=== PATIENT | male | born 1955 | race Caucasian/White ===

== ENCOUNTER 2016-09-11 09:48 | Day surgery (SDC) | payer OTHER ==
--- NOTE | ~2016-09-11 | EGD ---
EGD REPORT [facility] [address] [place] [address] NAME: DRE ANDRADE : 55 STATUS : REG [facility]#: [id number] AGE: 60 ADM/REG DATE : 09/11/16 MR#: [id number] REPORT SERV DATE: 09/11/16 DICTATED BY: BRANDEN CADET DATE: 09/11/16 REPORT STATUS : Draft TRANSCRIBED BY: [employer] DATE: 09/11/16 [facility] Patient Name: Dre Andrade Date of : 1955 Attending MD: BRANDEN CADET MD Procedure Date No Time: 09/11/2016 Procedure: Colonoscopy Indications: Colon cancer screening in patient at increased risk: Colorectal cancer in brother Referring MD: Delvin Rivas Medicines: Monitored Anesthesia Care Complications: No immediate complications. Procedure: Pre-Anesthesia Assessment: - ASA Grade Assessment: III - A patient with severe systemic disease. After I obtained informed consent, the scope was passed under direct vision. Throughout the procedure, the patient's blood pressure, pulse, and oxygen saturations were monitored continuously. The CF [id number] was introduced through the anus and advanced to the cecum, identified by appendiceal orifice and ileocecal valve. The colonoscopy was performed without difficulty. The patient tolerated the procedure well. The quality of the bowel preparation was good. Findings: The digital rectal exam was normal. Pertinent negatives include no palpable rectal lesions. The terminal ileum appeared normal. Hemorrhoids were found during retroflexion and were moderate. Multiple diverticula were found in the sigmoid colon. A sessile polyp was found in the descending colon. The polyp was 10 mm in size. The polyp was removed with a cold snare. Resection and retrieval were complete. A sessile polyp was found in the descending colon. The polyp was 6 mm in size. The polyp was removed with a jumbo cold forceps. Resection and retrieval were complete. A sessile polyp was found in the distal ascending colon. The polyp was 10 mm in size. The polyp was removed with a cold snare. Resection and retrieval were complete. A sessile polyp was found in the distal ascending colon. The polyp was 7 mm in size. The polyp was removed with a jumbo cold forceps. Resection and retrieval were complete. A sessile polyp was found in the transverse colon. The polyp was 7 mm in size. The polyp was removed with a jumbo cold forceps. Resection and EGD REPORT [address] [place]. [address] NAME: DRE ANDRADE : 55 [place]US : [place] [facility] [place]#: [id number] AGE: 60 ADM/REG DATE : 09/11/16 MR#: [id number] REPORT SERV DATE: 09/11/16 DICTATED BY: BRANDEN CADET DATE: 09/11/16 REPORT STATUS : Draft TRANSCRIBED BY: [facility] DATE: 09/11/16 retrieval were complete. Four pedunculated polyps were found in the sigmoid colon. The polyps were 8 to 17 mm in size. These polyps were removed with a hot snare. Resection and retrieval were complete. A sessile polyp was found in the sigmoid colon. The polyp was 7 mm in size. The polyp was removed with a jumbo cold forceps. Resection and retrieval were complete. Two sessile polyps were found in the rectum. The polyps were 5 to 6 mm in size. These polyps were removed with a jumbo cold forceps. Resection and retrieval were complete. A sessile polyp was found in the rectum. The polyp was 8 mm in size. The polyp was removed with a cold snare. Resection and retrieval were complete. Impression: - The examined portion of the ileum was normal. - Hemorrhoids. - Diverticulosis in the sigmoid colon. - One 10 mm polyp in the descending colon. Resected and retrieved. - One 6 mm polyp in the descending colon. Resected and retrieved. - One 10 mm polyp in the distal ascending colon. Resected and retrieved. - One 7 mm polyp in the distal ascending colon. Resected and retrieved. - One 7 mm polyp in the transverse colon. Resected and retrieved. - Four 8 to 17 mm polyps in the sigmoid colon. Resected and retrieved. - One 7 mm polyp in the sigmoid colon. Resected and retrieved. - Two 5 to 6 mm polyps in the rectum. Resected and retrieved. - One 8 mm polyp in the rectum. Resected and retrieved. Recommendation: - Patient has a contact number available for emergencies. The signs and symptoms of potential delayed complications were discussed with the patient. Return to normal activities tomorrow. Written discharge instructions were provided to the patient. - Regular diet. - Continue present medications. - Await pathology results. - Repeat colonoscopy in 1 year for surveillance. - Return to GI clinic PRN. Procedure Code(s): --- Professional --- EGD REPORT [address] [address] NAME: DRE ANDRADE : 55 [place]US : [place] [facility] [place]#: [id number] AGE: 60 ADM/REG DATE : 09/11/16 MR#: [id number] REPORT SERV DATE: 09/11/16 DICTATED BY: BRANDEN CADET DATE: 09/11/16 REPORT STATUS : Draft TRANSCRIBED BY: [employer] DATE: 09/11/16 [id number], Colonoscopy, flexible, proximal to splenic flexure; with removal of tumor(s), polyp(s), or other lesion(s) by snare technique 52796, 59, Colonoscopy, flexible, proximal to splenic flexure; with biopsy, single or multiple Diagnosis Code(s): --- Professional --- K64.9, Unspecified hemorrhoids K57.30, Diverticulosis of large intestine without perforation or abscess without bleeding K62.1, Rectal polyp D12.5, Benign neoplasm of sigmoid colon D12.3, Benign neoplasm of transverse colon D12.2, Benign neoplasm of ascending colon D12.4, Benign neoplasm of descending colon Z12.11, Encounter for screening for malignant neoplasm of colon Z80.0, Family history of malignant neoplasm of digestive organs CPT copyright 2013 [employer]. All rights reserved. The codes documented in this report are preliminary and upon roundhouse supervisor review may be revised to meet current compliance requirements. BRANDEN CADET MD 09/11/2016 12:17 PM This report has been signed electronically. Number of Addenda: 0 Note Initiated On: 09/11/2016 11:16 AM Scope Withdrawal Time 0 hours 30 minutes 53 seconds [id number] [id number]
[~2016-09-11 09:48] MED LIST: IMDUR30 PO; LIPITOR20 PO; LOP25 PO; RESCUE INHALER INH; ULTRAM50 PO
== END 2016-09-11 23:59 | disposition home or self-care (01) ==
LOC: DMU 09:48
PROVIDERS: Internal Medicine Gastroenterology
PROC: 0DBN8ZZ Excision of Sigmoid Colon, Via Natural or Artificial Opening Endoscopic (ICD-10-PCS; 2016-09-11)
PROC: 0DBL8ZZ Excision of Transverse Colon, Via Natural or Artificial Opening Endoscopic (ICD-10-PCS; 2016-09-11)
PROC: 0DBK8ZZ Excision of Ascending Colon, Via Natural or Artificial Opening Endoscopic (ICD-10-PCS; 2016-09-11)
PROC: 0DBM8ZZ Excision of Descending Colon, Via Natural or Artificial Opening Endoscopic (ICD-10-PCS; principal; 2016-09-11 11:30)
PROC: 0DBP8ZZ Excision of Rectum, Via Natural or Artificial Opening Endoscopic (ICD-10-PCS; 2016-09-11 11:30)
DX: Z12.11 Encounter for screening for malignant neoplasm of colon (principal); D12.4 Benign neoplasm of descending colon; D12.2 Benign neoplasm of ascending colon; D12.3 Benign neoplasm of transverse colon; D12.5 Benign neoplasm of sigmoid colon; D12.8 Benign neoplasm of rectum; K64.9 Unspecified hemorrhoids; K57.30 Diverticulosis of large intestine without perforation or abscess without bleeding; I10 Essential (primary) hypertension; I25.2 Old myocardial infarction; J44.9 Chronic obstructive pulmonary disease, unspecified; F17.210 Nicotine dependence, cigarettes, uncomplicated; Z95.5 Presence of coronary angioplasty implant and graft; Z80.0 Family history of malignant neoplasm of digestive organs; Z79.899 Other long term (current) drug therapy
CPT/HCPCS: 88305